=== PATIENT | female | born 1975 | race Caucasian/White ===

== ENCOUNTER 2020-04-18 12:11 | Emergency (ER) | payer OTHER, SELFPAY ==
[2020-04-18] VITALS (29 sets, daily range): BP systolic 98–145; BP diastolic 63–99; PULSE 82–105; RESP 13–23; TEMP 36.9–38; O2SAT 98–99
--- NOTE | ~2020-04-18 | CT_ITS ---
EXAMINATION: CT abdomen pelvis w con DATE: 04/18/2020 14:13 INDICATION: Lower abdominal pain TECHNIQUE: Computed tomography (CT) of the abdomen and pelvis was performed with 100 mL Omnipaque-350 intravenous contrast. Automated exposure control and iterative reconstruction technique were employe d. The dose-length product was 1237.50 mGy-cm. COMPARISON: None FINDINGS: Minimal discoid atelectasis in the left lower lobe. Heart size is normal. No pericardial or pleural e ffusion. Liver, gallbladder, spleen, pancreas, bilateral adrenal glands and kidneys are normal. There is mild colonic diverticulosis with a sigmoid predominance. There is no adjacent inflammatory quiles e to suggest diverticulitis. Small bowel and appendix are normal. Tiny fat-containing umbilical herni a. T-shaped IUD in expected position within the endometrial canal of the anteverted uterus. Bladder a nd left adnexa are normal. 2.2 cm cyst/follicle at the right ovary. Trace amount of free fluid in the cul-de-sac. No free peritoneal gas. 2.8 x 1.9 x 2.1 cm subcutaneous nodule at the left groin which a ppears to extend to the skin surface. Mild bilateral likely reactive inguinal lymphadenopathy no path ologically enlarged lymphadenopathy in the abdomen or pelvis. Bones are unremarkable. IMPRESSION: 1. No acute intra-abdominal/pelvic process. 2. Mild diverticulosis. 3. T-shaped IUD in expected position. 4. Mild bilateral inguinal lymphadenopathy which may be reactive and 2.8 x 1.9 x 2.1 cm subcutaneous nodule at the left groin. Differential for the subcutaneous nodule would include additional lymph nod e, epidermoid cyst or neoplasm which could be either benign or less likely malignant. Could consider further evaluation with ultrasound/ultrasound-guided biopsy. Reviewed, dictated and finalized at location A. IMPRESSION: 1. No acute intra-abdominal/pelvic process. 2. Mild diverticulosis. 3. T-shaped IUD in expected position. 4. Mild bilateral inguinal lymphadenopathy which may be reactive and 2.8 x 1.9 x 2.1 cm subcutaneous nodule at the left groin. Differential for the subcutaneo us nodule would include additional lymph node, epidermoid cyst or neoplasm whic h could be either benign or less likely malignant. Could consider further evalu ation with ultrasound/ultrasound-guided biopsy.
--- NOTE | ~2020-04-18 | XR_ITS ---
EXAMINATION: XR chest 1V portable DATE: 04/18/2020 13:44 INDICATION: Shortness of breath. TECHNIQUE: frontal view of the chest was obtained. COMPARISON: Chest radiograph dated 01/10/2020 FINDINGS: The lungs remain clear with no focal airspace opacities, pulmonary edema, pleural effusion or pneumot horax. The cardiomediastinal silhouette is normal. Visualized bones and soft tissues are unremarkable . IMPRESSION: 1. No acute cardiopulmonary disease. Reviewed, dictated and finalized at location A.
--- NOTE | 2020-04-18 12:28 | ECG_ITS ---
Measurements Intervals [place] Rate: 97 P: 34 MD: 130 QRS: -13 QRSD: 92 T: 8 QT: 334 QTc: 426 Interpretive Statements SINUS RHYTHM BORDERLINE T WAVE ABNORMALITY- INFERIOR LEADS BASELINE WANDER- II, III, V4 BORDERLINE ECG Electronically Signed On 04-18-2020 13:57:59 CDT by Raphael Chowdhury D.O.
--- NOTE | 2020-04-18 12:42 | ED.ABDPAIN ---
HPI - Abdominal Pain General Chief Complaint: Abdominal Pain Stated Complaint: abd pain Time Seen by Provider: 04/18/20 12:22 Source: patient Mode of arrival: ambulatory History of Present Illness HPI narrative: This patient is a 44 year old female who presents for evaluation of lower abdominal pain. She developed pain to right lower abdomen 2 days. She states she has history of ovarian cyst so she states she did not think much of it. She states her pain started to radiate to her left side and to her lower back . Her pain has improved today. She states she developed some dizziness earlier and mild sob . She denies cough, chest pain or urinary symptoms. She has not leg swelling or calf pain. Related Data Home Medications Medication Instructions Recorded Confirmed escitalopram oxalate [Lexapro] 10 mg PO DAILY 04/18/20 spironolactone 100 mg PO DAILY 04/18/20 Allergies Allergy/AdvReac Type Severity Reaction Status Date / Time Sulfa (Sulfonamide Allergy Unknown Verified 12/12/15 15:53 Antibiotics) Review of Systems Review of Systems: All systems reviewed & are unremarkable except as noted in HPI and below Constitutional: Constitutional: Denies chills and Reports fever(s) Cardiovascular: Cardiovascular: Denies chest pain and Denies radiating jaw, neck or arm pain Respiratory: Respiratory: Denies cough, Reports dyspnea and Denies wheezing Gastrointestinal: Gastrointestinal: Reports abdominal pain, Denies constipation, Denies diarrhea and Denies vomiting Genitourinary: Genitourinary: Reports no additional female genitourinary complaints Musculoskeletal: Musculoskeletal: Reports back pain Neurologic: Reports dizziness PMFSH Past Medical History Medical History (Updated 04/18/20 @ 15:59 by Rhianna Nash MD) Patient denies medical problems Surgical History Surgical History (Updated 04/18/20 @ 12:43 by Rhianna Nash MD) H/O: knee surgery Family History Family History (Updated 12/12/15 @ 15:54 by DOCTOR UNKNOWN) Other Family history of arthritis Family history of malignant neoplasm Social History Social History Smoking status: Never smoker Alcohol intake: never Gender identity (if verbalized by the patient): Male Exam Narrative: Exam Narrative: GENERAL: Well-appearing, well-nourished, and in no acute distress. HEAD: Normocephalic, atraumatic EYES: PERRLA and EOMI, conjunctiva clear without discharge THROAT:Mucous membranes moist, NECK: Supple, without lymphadenopathy or mass RESPIRATORY: No respiratory distress, Airway patent, Respirations non-labored, Clear to auscultation without rales, rhonchi or wheeze HEART: Regular rate and rhythm. No murmur heard. Normal peripheral pulses. ABDOMEN: Soft, mild bilateral lower tenderness with worse on left, nondistended, normal active bowel sounds. No masses. No rebound or guarding, No organomegaly. EXTREMITIES: No edema, normal strength with full range of motion. SKIN: Warm, dry, normal color without rash NEURO: Alert and oriented x3. CN 2-12 grossly intact. No focal deficits. PSYCH: Normal mood and affect. Course Reevaluation(s) Reevaluation #1: I have discussed with patient CT and labs. She understands she will need to follow up PCP regarding lymphadenopathy. She has also be swabbed for COVID. She likely had ruptured ovarian cyst. Date: 04/18/20 Time: 15:54 Vital Signs Vital signs: Vital Signs Pulse Rate 105 H 04/18/20 12:28 Respiratory Rate 14 04/18/20 12:28 Blood Pressure 136/99 H 04/18/20 12:28 Temperature 98.5 F 04/18/20 13:56 Pulse Rate 94 04/18/20 16:04 Respiratory Rate 17 04/18/20 16:04 Blood Pressure 107/63 04/18/20 16:04 Pulse Oximetry 99 04/18/20 16:07 MDM - Abdominal Pain Lab Data Result diagrams: 04/18/20 12:45 04/18/20 12:45 Labs: Lab Results 04/18/20 04/18/20 04/18/20 Range/Units 12:45 12:45 12:45 WBC 11.4
[2020-04-18 13:00] LABS: Basophils Absolute Auto 0.1 K/mm3 (0.0-0.1); Basophils Percent Auto 0.7 % (0.2-1.2); Eosinophils Absolute Auto 0.1 K/mm3 (0-0.3); Eosinophils Percent Auto 0.9 % (0-4.4); Hematocrit 38.1 % (37.0-47.0); Immature Granulocyte Absolute 0.07 K/mm3 (0.00-0.031); Immature Granulocyte Percent A 0.6 % (0-0.5); Lymphocytes Absolute Auto 1.45 K/mm3 (0.9-3.2); Lymphocytes Percent Auto 12.7 % (18.3-44.2); Mean Corpuscular HGB Conc 34.1 g/dl (32-36); Mean Corpuscular Hemoglobin 32.4 pg (26-34); Mean Platelet Volume 10.5 fl (7.4-10.4); Monocytes Absolute Auto 1.1 K/mm3 (0.1-0.6); Monocytes Percent Auto 9.5 % (2.6-8.5); Neutrophils Absolute Auto 8.6 K/mm3 (1.3-6.7); Neutrophils Percent Auto 75.6 % (45.5-73.1); Platelet Count Result 292 k/mm3 (150-375); Red Blood Count 4.01 M/mm3 (4.2-5.4); Red Cell Distribution Width 12.9 % (11.5-14.5); White Blood Count 11.4 K/mm3 (4.5-10.0)
[2020-04-18 13:14] LABS: Alanine Aminotransferase 14 U/L (4-35); Albumin Level 4.2 g/dL (3.5-5.1); Alkaline Phosphatase 56 U/L (38-126); Aspartate Amino Transferase 23 U/L (14-36); Bilirubin,Total 0.6 mg/dL (0.2-1.3); Blood Urea Nitrogen 10 mg/dL (7-17); Calcium 8.7 mg/dL (8.4-10.2); Carbon Dioxide 28 mmol/L (22-30); Chloride 100 mmol/L (98-107); Estimated CRCL calculation 105 ml/min; Estimated Glomerular Filt Rate > 60; Glucose 107 mg/dL (65-105); Lipase 55 U/L (23-300); Potassium 3.8 mmol/L (3.4-5.0); Sodium 135 mmol/L (137-145)
[2020-04-18] MEDS: SODIUM CHLORIDE 0.9% IV 1,000 ML 999 ML IV CONT (13:26)
[2020-04-18] MEDS: KETOROLAC 30 MG/ML VIAL (*BKC) IV PUSH (13:26)
[2020-04-18 13:41] LABS: Add Urine Microscopic? YES; Appearance Urine Cloudy (Clear); Bacteria Urine Trace /hpf; Bilirubin Urine Negative (Negative); Blood Urine 1+ (Negative); Color Urine Yellow (Yellow); Glucose Urine UA Negative (Negative); Ketones Urine Negative (Negative); Leukocyte Esterase Ur 1+ LEU/UL (Negative); Mucus Urine Rare /lpf; Nitrate Urine Negative (Negative); Protein Urine Negative (Negative); Specific Grav Ur 1.016 (1.001-1.035); Squamous Epithelial Cell Urine Few /hpf (Few); Urobilinogen Urine Negative mg/dL (<2.0)
[2020-04-18 22:36] LABS: SARS-CoV-2 RNA PCR Negative
== END 2020-04-18 16:19 | disposition home or self-care (01) ==
PROVIDERS: Emergency Provider General Practice
DX: N83.201 Unspecified ovarian cyst, right side (principal); R59.1 Generalized enlarged lymph nodes; R19.04 Left lower quadrant abdominal swelling, mass and lump; Z20.828 Contact with and (suspected) exposure to other viral communicable diseases; K57.90 Diverticulosis of intestine, part unspecified, without perforation or abscess without bleeding; Z97.5 Presence of (intrauterine) contraceptive device
CPT/HCPCS: 36415; 71045; 74177; 80053; 81001; 81025; 83605; 83690; 85025; 87086; 87088; 87635; 93005; 96361; 96374; 99284; C9803; J1885; J7030; Q9967; U0003

== ENCOUNTER 2021-01-23 07:35 | Outpatient (CLI) | payer OTHER, SELFPAY ==
[2021-01-23 08:11] LABS: Hematocrit 38.7 % (37.0-47.0); Hemoglobin 13.2 g/dL (12.0-15.0); Mean Corpuscular HGB Conc 34.1 g/dl (32-36); Mean Corpuscular Hemoglobin 33.1 pg (26-34); Mean Platelet Volume 10.1 fl (7.4-10.4); Platelet Count Result 301 k/mm3 (150-375); Red Blood Count 3.99 M/mm3 (4.2-5.4); Red Cell Distribution Width 13.1 % (11.5-14.5); White Blood Count 10.7 K/mm3 (4.5-10.0)
[2021-01-23 09:02] LABS: Hemoglobin A1C 5.5 % (<5.7)
[2021-01-23 09:06] LABS: Free T4 Free Thyroxine 0.71 ng/mL (0.78-2.19); Vitamin D 25 Hydroxy 40.7 ng/mL
[2021-01-23 09:29] LABS: Alanine Aminotransferase 17 U/L (4-35); Albumin Level 4.3 g/dL (3.5-5.1); Alkaline Phosphatase 53 U/L (38-126); Anion Gap 7 mmol/L (8-16); Aspartate Amino Transferase 22 U/L (14-36); Bilirubin,Total 0.4 mg/dL (0.2-1.3); Blood Urea Nitrogen 17 mg/dL (7-17); Carbon Dioxide 29 mmol/L (22-30); Chloride 103 mmol/L (98-107); Cholesterol 231 mg/dL (0-200); Estimated Glomerular Filt Rate > 60; Glucose 94 mg/dL (65-105); HDL Direct 33 mg/dL; Sodium 139 mmol/L (137-145); Triglycerides 206 mg/dL (<150)
[2021-01-23 09:41] LABS: LDL Cholesterol Direct 151 mg/dL
== END 2021-01-23 07:36 | disposition home or self-care (01) ==
PROVIDERS: PCP Nurse Practitioner Family; Visit Provider Obstetrics & Gynecology Gynecology
DX: Z00.00 Encounter for general adult medical examination without abnormal findings (principal)
CPT/HCPCS: 36415; 80053; 80061; 82306; 82607; 83036; 84439; 84443; 85027

== ENCOUNTER 2022-12-07 17:23 | Emergency (ER) | payer OTHER, SELFPAY ==
--- NOTE | 2022-12-07 17:28 | ED.URI ---
HPI - URI/Sore Throat General Chief Complaint: Upper Respiratory Infection Stated Complaint: cough,sore throat, rt ear pressure Time Seen by Provider: 12/07/22 17:38 Source: patient and RN notes reviewed Mode of arrival: ambulatory Limitations: no limitations History of Present Illness HPI Narrative: 47-year-old female presents with concern for nasal congestion, ear pressure, cough. Reports her son had mono and strep throat 2 weeks ago. She reports she is taking [id number] medications without relief. She denies fever, chills, sweats, shortness of breath MD elicited complaint: cough and nasal congestion Related Data Home Medications Medication Instructions Recorded Confirmed escitalopram oxalate 10 mg tablet 20 mg PO DAILY 04/18/20 12/07/22 (Lexapro) spironolactone 100 mg tablet 100 mg PO DAILY 04/18/20 12/07/22 bupropion HCl 150 mg 24 hr tablet, 150 mg PO DAILY 12/07/22 12/07/22 extended release Allergies Allergy/AdvReac Type Severity Reaction Status Date / Time Sulfa (Sulfonamide Allergy Unknown Rash Verified 12/07/22 17:31 Antibiotics) Review of Systems Review of Systems: CONSTITUTIONAL: Denies malaise, chills, sweats, or fever. EYES: Denies visual changes, redness, or discharge. ENT: Reports rhinorrhea, congestion, otalgia and sore throat. CARDIOVASCULAR: Denies chest pain, palpitations, or edema. RESPIRATORY: Reports cough. Denies dyspnea. GASTROINTESTINAL: Denies abdominal pain, nausea, vomiting, diarrhea SKIN: Denies rash or itching. MUSCULOSKELETAL: Denies myalgia. NEUROLOGIC: Denies headache. All systems reviewed & are unremarkable except as noted in HPI and below PMFSH Past Medical History Medical History (Updated 12/07/22 @ 17:49 by Sera Oropeza NP) Patient denies medical problems Surgical History Surgical History (System 03/13/22 @ 11:47 by Rosa Lynn) H/O: knee surgery Family History Family History (System 03/13/22 @ 11:47 by Rosa Lynn) Other Family history of arthritis Family history of malignant neoplasm Social History Social History (System 03/13/22 @ 11:47 by Rosa Lynn) Smoking status: Never smoker Alcohol intake: never Gender identity (if verbalized by the patient): Male Comments At time of signature, agree with nursing past medical, surgical, social and family history. There is no relevant family history pertinent to the presenting complaint Exam Narrative: GENERAL: Well-appearing, well-nourished, and in no acute distress. HEAD: Normocephalic EYES: PERRLA, conjunctivae clear ENT: Nares clear, turbinates edematous and erythematous, clear discharge. Mucous membranes moist. TM pearly with dull light reflex bilaterally; no tragal tenderness. Oropharynx not erythematous without lesions. Tonsils not enlarged and without exudate, no drooling, no hoarseness, no trismus, uvula midline. NECK: Supple. Mild cervical lymphadenopathy CHEST: Clear to auscultation, breath sounds equal. No wheezing, rhonchi, rales, or stridor. No respiratory distress, speaks in full sentences. HEART: Regular rate and rhythm. No murmur heard. SKIN: Warm, dry, no rash. NEURO: Alert and oriented x3. PSYCH: Normal mood and affect Course Course Emergency Course: Patient is aware of diagnosis, understands and agrees to treatment plan. Anticipatory guidance given. Patient agrees to follow-up as directed and is aware of reasons to seek care at the emergency department. Portions of this record may have been created with voice recognition software Level of Care: Express Care Visit Vital Signs Vital signs: Reviewed. MDM - URI/Sore Throat MDM Narrative Medical decision making narrative: Differential diagnosis considered: Silvestre virus, strep pharyngitis, allergic rhinitis, upper respiratory tract infection, sinusitis, rhinosinusitis, nasopharyngitis. viral pharyngitis, otitis media, otitis externa, pneumonia, bronchitis, viral cough syndrome, viral syn
[2022-12-07 17:36] VITALS: BP 123/85; PULSE 93; RESP 16; TEMP 36.4; O2SAT 99
== END 2022-12-07 17:52 | disposition home or self-care (01) ==
PROVIDERS: Emergency Provider Nurse Practitioner
DX: J06.9 Acute upper respiratory infection, unspecified (principal)
CPT/HCPCS: 87081; 87880; 99213; G0463

== ENCOUNTER 2023-01-12 10:20 | Emergency (ER) | payer OTHER, SELFPAY ==
[2023-01-12 10:28] VITALS: BP 122/80; PULSE 101; RESP 16; TEMP 36.5; O2SAT 99
--- NOTE | 2023-01-12 10:56 | ED.URI ---
HPI - URI/Sore Throat General Chief Complaint: Upper Respiratory Infection Stated Complaint: lt side ear pain, nausea, sore throat Time Seen by Provider: 01/12/23 10:33 Source: patient Mode of arrival: ambulatory Limitations: no limitations History of Present Illness HPI Narrative: patient is a 47-year-old female that presents with left-sided ear pain, throat pain since Wednesday. Patient states the ear pain makes her dizzy at times and nauseous. Has not thrown up. Has not taken anything for symptoms. Denies any fever, congestion, cough, shortness of breath. Has no sick contacts. Related Data Home Medications Medication Instructions Recorded Confirmed escitalopram oxalate 10 mg tablet 20 mg PO DAILY 04/18/20 12/07/22 (Lexapro) spironolactone 100 mg tablet 100 mg PO DAILY 04/18/20 12/07/22 bupropion HCl 150 mg 24 hr tablet, 150 mg PO DAILY 12/07/22 12/07/22 extended release Allergies Allergy/AdvReac Type Severity Reaction Status Date / Time Sulfa (Sulfonamide Allergy Unknown Rash Verified 01/12/23 10:29 Antibiotics) Review of Systems Review of Systems: All systems reviewed & are unremarkable except as noted in HPI and below Constitutional: Constitutional: Denies body ache(s), Denies fever(s), Denies headache(s), Denies malaise and Denies weakness Eyes: Eyes: Denies loss of vision ENT: Denies otalgia, Reports headache(s), Reports nasal congestion, Denies sinus pain and Denies sore throat Cardiovascular: Cardiovascular: Denies chest pain, Denies irregular heart rhythm and Denies dyspnea Respiratory: Respiratory: Reports cough and Denies dyspnea Gastrointestinal: Gastrointestinal: Denies abdominal pain, Denies melena, Denies hematochezia, Denies diarrhea, Denies nausea and Denies vomiting Musculoskeletal: Musculoskeletal: Denies back pain, Denies myalgias and Denies arthralgias Integumentary/Breasts: Skin/Breast: Denies pruritus and Denies rash Neurologic: Denies headache(s), Denies loss of vision and Denies weakness Psychiatric: Psychiatric: Reports no additional psychiatric complaints PMFSH Past Medical History Medical History (Updated 01/12/23 @ 10:59 by Xioamra Wong, MERISSA) Patient denies medical problems Surgical History Surgical History (System 03/13/22 @ 11:47 by Rosa Lynn) H/O: knee surgery Family History Family History (System 03/13/22 @ 11:47 by Rosa Lynn) Other Family history of arthritis Family history of malignant neoplasm Social History Social History (System 03/13/22 @ 11:47 by Rosa Lynn) Smoking status: Never smoker Alcohol intake: never Gender identity (if verbalized by the patient): Male Comments At time of signature, agree with nursing past medical, surgical, social and family history. There is no relevant family history pertinent to the presenting complaint. Exam Const: General: cooperative, healthy appearing, comfortable, no acute distress and well nourished Nutritional Appearance: well nourished Orientation/consciousness: patient oriented x3 Limitations: no limitations HENMT: Head: normal to inspection, normocephalic and atraumatic Ears: external ears normal and TM's normal bilaterally Face/Nose/Sinus: Normal external nose present, normal facial exam, sinuses nontender and face symmetric Face and sinus: normal facial exam, sinuses nontender and face symmetric Mouth: Yes Normal oral and palatal mucosa present, Yes lip normal and Yes moist mucous membranes Teeth and gingiva: dentition normal Throat: uvula midline, abnormal tonsil on the left exudates and bilateral erythema and hypertrophy 3+ and posterior oropharynx abnormal erythema Eyes: General: appearance normal, both eyes and all related structures Alignment and Position: alignment normal and position normal Periorbital: periorbital findings normal Eyelids: eyelids normal Pupils: Equal, round and reactive pupils present Neck: Neck: normal visual inspection, fu
== END 2023-01-12 11:10 | disposition home or self-care (01) ==
PROVIDERS: Emergency Provider Nurse Practitioner Family; PCP Nurse Practitioner Family
DX: J03.90 Acute tonsillitis, unspecified (principal)
CPT/HCPCS: 87081; 87880; 99213; G0463

== ENCOUNTER 2023-06-11 08:24 | Outpatient (CLI) | payer OTHER, SELFPAY ==
--- NOTE | ~2023-06-11 | MR_ITS ---
EXAMINATION: MR knee LT wo con DATE: 06/11/2023 09:51 INDICATION: Chronic left knee pain TECHNIQUE: Magnetic resonance imaging (MRI) of the left knee was performed without intravenous contra st. Sequences included coronal PD-weighted FSE, coronal PD-weighted FS FSE, sagittal T2-weighted FSE , sagittal PD-weighted FS FSE and axial PD weighted fat saturated FSE. COMPARISON: None. FINDINGS: Medial compartment: Medial meniscus is normal. Partial-thickness chondral fissuring which appears to involve at least 50% the cartilage thickness but without degenerative subchondral changes at the central weightbearing me dial femoral condyle. Lateral compartment: Lateral meniscal tears including a longitudinal horizontal tear plane extending to the articular surf tariq near the free edge of the meniscal body and with complex multiplanar tear at the posterior horn. Additional partial thickness chondral fissuring without degenerative subchondral changes at the centr al and posterior weightbearing lateral femoral condyle. Patellofemoral compartment: Large region of chondral ulceration involving up to 50% the cartilage thickness and with some superim posed deeper chondral fissuring at the lateral patellar facet without degenerative subchondral change s. Mild chondral surface irregularity along portions of the medial facet. Additional extensive deep c hondral ulceration with underlying cortical irregularity and cystlike changes at the lateral trochlea . Shallow chondral ulceration with chondral surface irregularity along the inferior aspect of the med ial trochlea. Ligaments and tendons: Anterior and posterior cruciate ligaments are normal. The medial collateral ligament and fibular leela ateral ligament complex are normal. The extensor mechanism is normal. The visualized medial and later al hamstring tendons as well as the iliotibial band are normal. Fluid: Physiologic amount of fluid in the joint space. No loose osteochondral bodies identified. Moderate-si zed ganglion cyst at the posterior medial aspect of the knee which remains deep to the semimembranosu s tendon before bulging medially between the posterior aspect medial collateral ligament complex and the more superficial sartorius and gracilis tendons. Osseous/other: There is diffuse red marrow reexpansion in the metaphyseal and diaphyseal regions of the distal femur and proximal tibia and fibula. No fracture or pathologic marrow replacing process. IMPRESSION: 1. Complex lateral meniscal tear. 2. 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 Reviewed, dictated and finalized at location A. IMPRESSION: 1. Complex lateral meniscal tear. 2. Mild tricompartmental osteoarthritis with extensive extensive moderate and h igh-grade chondromalacia in the distal femoral compartment and with small regio ns of moderate grade chondromalacia in the medial and lateral compartments.
== END 2023-06-11 08:25 | disposition home or self-care (01) ==
PROVIDERS: PCP Nurse Practitioner Family; Visit Provider Nurse Practitioner Family
DX: M17.12 Unilateral primary osteoarthritis, left knee (principal); S83.272A Complex tear of lateral meniscus, current injury, left knee, initial encounter; X58.XXXA Exposure to other specified factors, initial encounter
CPT/HCPCS: 73721

== ENCOUNTER → 2023-08-30 12:21 | Outpatient (CLI) | payer OTHER, SELFPAY ==
--- NOTE | ~2023-08-30 | MM_ITS ---
EXAMINATION: MM screening [facility] BI w meseret HISTORY: Screening mammogram TECHNIQUE: Craniocaudal and mediolateral oblique 3-D tomosynthesis images were obtained and synthetic 2-D images were generated. CAD analysis was submitted and interpreted. COMPARISON: 05/24/2014 BREAST PARENCHYMAL COMPOSITION: The breasts are almost entirely fatty. FINDINGS: Intramammary lymph nodes are noted in the right breast. No suspicious mass, calcification, or architectural distortion are identified in either breast to suggest malignancy. There has been no suspicious interval change. IMPRESSION: 1. No mammographic evidence of malignancy. 2. Recommend routine screening mammography in one year. BI-RADS Category 2: Benign finding(s). Reviewed, dictated and finalized at location A. NCIAL INVESTIGATOR
== END ==
PROVIDERS: PCP Obstetrics & Gynecology Gynecology; Visit Provider Nurse Practitioner Family
DX: Z12.31 Encounter for screening mammogram for malignant neoplasm of breast (principal)
CPT/HCPCS: 77063; 77067

== ENCOUNTER 2024-03-31 08:15 | Outpatient (RCR) | payer OTHER, SELFPAY ==
--- NOTE | 2024-03-08 11:13 | PCPTNOTE ---
pt called and canceled today's evaluation appt; rescheduled eval.
--- NOTE | 2024-03-16 11:55 | PTOPEVAL1 ---
Assessment and note entered by Lam Mcguire Evaluation Information Assessment Status Evaluation Diagnosis left knee pain Onset 02/16/24 Subjective Information Pt. reports that she has had left knee pain for years. She reports that she has a hx of multiple arthroscopic knee procedures. She states that her knee pain has been increasing as of recently. She describes pain under the knee cap and into the medial knee joint line. She reports that her last appointment with her doctor knee replacement was suggested. She reports she is attempting to avoid surgery currently. She reports pain is worsened with squatting activities and stairs. She reports she began a new arthritis medicine which does help to ease pain. Pt. reports since beginning her medicine she has been walking about 1 mile daily with her dog. She reports that her doctor is concerned regarding the pt. hip and core strength. She reports that her goal is to improve her hip strength. Reported Pain Level Pain Score 2: Self Report Assessment PT Clinical Summary Pt. is a 48 year old female who enters the clinic with left knee pain. She presents with impaired gait, pain, impaired l.e. strength and functional decline. Continued skilled PT is indicated in order to improve these areas to allow the pt. to be able to return to be able to complete ADL's with improved comfort and efficiency. Plan of Care Interventions Electrical Stimulation,Gait Training,Hot Pack/Cold Pack,Manual Therapy,Neuro Re-education,Patient/ Caregiver Educati,Therapeutic Activities, Therapeutic Exercise PT Services Indicated Yes Treatment Frequency and 2x/week x 6 visits Duration These treatments will address the objective and functional deficits as defined above. The patient will be advanced safely and appropriately in order for the patient to progress towards his/her prior level of function. Additional exercises will be introduced and as well as a comprehensive home exercise program upon discharge, if needed, ?to ensure carryover of functional gains achieved in the clinic. This treatment plan has been reviewed and agreement upon by the patient.
--- NOTE | 2024-03-16 11:56 | OPREHPOC ---
Outpatient Therapy Plan of Care This is a Multidisciplinary Plan of Care that may contain components documented by all disciplines (PT, OT, and ST.) PT Problem 1 PT Problem #1 Knowledge Deficit PT Goal 1 Goal Pt. will be independent with a HEP focusing on strength and stability Target Visit 2 PT Problem 2 PT Problem #2 Impaired Strength PT Goal 1 Goal Pt. will present with 5/5 proximal l.e. strength in all mm. groups Target Visit 6 PT Problem 3 PT Problem #3 Impaired Gait PT Goal 1 Goal Pt. will ambulate without deviation over level surface. Target Visit 6 PT Problem 4 PT Problem #4 Impaired Functional Mobil PT Goal 1 Goal Pt. will be able to navigate 15 steps without knee pain using reciprocal pattern. Target Visit 6
--- NOTE | 2024-04-05 10:58 | PCPTNOTE ---
Pt canceled appt due to work conflict.
--- NOTE | 2024-04-07 08:26 | PCPTNOTE ---
pt did not show for today's reevaluation appt; called and left her voice mail for reminder. She has 3 visits left on her order for additional treatment sessions.
--- NOTE | 2024-06-08 11:50 | PCPTNOTE ---
Mrs. Mcallister attended 3 treatment sessions from 03/16/24 to 02/29/24. She cancelled her last session due to work and has failed to return to the clinic. She will be discharged from our care at this time. Thank you for the referral of this patient. Lam Mcguire, MPT
== END 2024-06-01 10:24 | disposition home or self-care (01) ==
LOC: ANHPT 08:15
PROVIDERS: PCP Nurse Practitioner Family; Visit Provider Orthopaedic Surgery
DX: M25.562 Pain in left knee (principal)
CPT/HCPCS: 97014; 97110; 97140; 97161; 97530; G0283